=== PATIENT | female | born 1995 | race Hispanic/Latino ===

== ENCOUNTER 2019-02-12 23:19 | Emergency (ER) | payer SELFPAY ==
[~2019-02-12] VITALS: Ht 149.9 cm; Wt 83.9 kg
--- OUTSIDE RECORDS SUMMARY | 2019-02-12 23:24 | XMS REPORT ---
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 Allergies, Adverse Reactions, Alerts Allergy Name Allergy Type Status Severity Reaction(s) Onset Date Inactive Date Treating Clinician Comments No Known Drug Allergies DA Active U 2017-12-19 00:00:00 Medications This patient has no known medications. Results Test Description Test Time Test Comments Text Results Atomic Results Result Comments - US PREG AFTER 2019-01-27 16:10:00 Patient Name: NICOLASA PEREZ Unit No: [id number] EXAMS: CPT CODE: [id number] US PREG AFTER [address] [facility] [address], [place] [address] OBSTETRICAL ULTRASOUND REPORT Pat. Name: NICOLASA PEREZ Pat. No: [id number] Study Date: 01/27/2019 2:22pm , Age: 06 1995, 23 Pregnancies: 3, Para 2 LMP: 09/07/2018 GA by LMP: 20w2d GA by US: 18w6d GA Selected: 18w6d (Sonographic) JANIA: 06/24/2019 Referring MD: Jasmin Escobar Preparer: Tiffany Huber RDMS, RVT CPT4: [id number] Admitting MD: LISSA CASTELLANOS Hist/Ind: SCAN 1 ANATOMY MEASUREMENTS AGE GROWTH EVALUATION Measurement GA Range Srce %for GA Ratios ----- ---- ------- BPD 4.1 cm 18w2d (40f9b-37c9l) Hadl BPD 28% FL/BPD 0.73 HC 15.7 cm 18w4d (95p2d-75p5t) Hadl HC 42% FL/AC 0.21 APD 4.5 cm APD HC/AC 1.11 (1.07 - 1.26) TAD 4.5 cm TAD CI 0.77 (0.70 - 0.86) AC 14.1 cm 19w1d (54m8b-65k0v) Hadl AC 59% FL 3.0 cm 18w6d (01t5b-40p6t) Hadl FL 52% HL 2.8 cm 19w0d (19e3s-72n0t) Albert HL 54% GA for sonogram 18w6d (58s2x-16b8r) Weight Estimate: based on (BPD,HC,AC,FL) Hadlock Weight: 284 gm (242-325) Hadlock : 0lbs, 10oz Cervical Length: 3.8 cm Heart Rate: 129 bpm MATERNAL ANATOMY Ovaries LxHxW (cm) Right 2.4 x 1.3 x 1.7 Vol: 2.8cc Left 3.0 x 1.7 x 1.5 Vol: 4.0cc CLINICAL SUMMARY Type of Gestation: Esparza Intrauterine in transverse presentation. size is slightly less than expected for menstrual age. . growth: ?? HISTORY OF IRREGULAR CYCLES motion and organs seen: heart motion seen somatic activity observed body and limb movements seen [facility] [place], [place] NAME: NICOLASA PEREZ JIE Radiology Department PHYS: Lissa Wood MD [address] : 1995 AGE: 23 SEX: F [place], [place] [address] LOC: AprilRAD PHONE #: [phone] EXAM DATE: 01/27/2019 STATUS: REG CLI FAX #: [phone] RAD NO: Page 1 Signed Report (CONTINUED) Patient Name: NICOLASA PEREZ Unit No: [id number] EXAMS: CPT CODE: [id number] US PREG AFTER 1ST TRI 63828 <Continued> Four chamber heart observed Left ventricular outflow tract (LVOT) seen Right ventricular outflow tract (RVOT) seen Regular cardiac rhythm observed Normal intracranial anatomy seen Umbilical cord insertion in fetus seen stomach, Renal Fossa, Bladder and Spine seen Three vessel umbilical cord noted abnormalities observed: None seen at this exam Placental location: Posterior Placental maturity : Grade 1 There is no evidence of placenta previa. Amniotic fluid volume is normal. Uterus and adnexa: No significant abnormality is seen. FOLLOW UP FOR GROWTH CLINICALLY INDICATED. Thank you for allowing us to participate in the care of this patient. Kerline Anderson M.D. Electronic Signature 01/27/2019 04:10pm at 1610 Reported and signed by: Kylee Anderson MD CC: Lissa Castellanos MD Technologist: Tiffany Huber RDMS, RVT Probe: Trnscrbd D/ (1610) [email or web address] Orig Print D/T: S: 01/27/2019 (1910) [facility] NAME: NICOLASA PEREZ ALLEN Radiology Department PHYS: Lsisa Wood MD [address] : 1995 AGE: 23 SEX: F [place] [address] LOC: AprilRAD PHONE #: [phone] EXAM DATE: 01/27/2019 STATUS: REG CLI FAX #: [phone] RAD NO: Page 2 Signed Report Patient Name: NICOLASA PEREZ Unit No: [id number] EXAMS: CPT CODE: [id number] US PREG AFTER 1ST TRI 15184 <Continued> [facility] NAME: NICOLASA PEREZ ALLEN Radiology Department PHYS: Lissa Wood MD [address] : 1995 AGE: 23 SEX: F [place] [address] LOC: AprilRAD PHONE #: [phone] EXAM DATE: 01/27/2019 STATUS: REG CLI FAX #: [phone] RAD NO: Page 3 Signed Report
[2019-02-13] MEDS ORDERED: POTASSIUM CHLORIDE 20 MEQ TAB CR PO STA (00:03)
[2019-02-13] MEDS ORDERED: POTASSIUM CHLORIDE 20 MEQ TAB CR PO ONE (00:25)
== END 2019-02-13 00:35 | disposition home or self-care (01) ==
LOC: FSED 23:19
DX: O23.12 Infections of bladder in pregnancy, second trimester (principal); N30.01 Acute cystitis with hematuria; Z3A.19 19 weeks gestation of pregnancy
CPT/HCPCS: 80048; 80076; 81003; 85025; 87086; 99283